=== PATIENT | male | born 1950 | race Caucasian/White ===

== ENCOUNTER → 2017-04-28 | Outpatient (CLI) | payer MEDICARE, OTHER ==
--- NOTE | 2017-04-29 16:27 | MRI ---
EXAM DESCRIPTION: Ankle,Left: MRI. CLINICAL HISTORY: ANKLE PAIN. Left ankle fracture laterally 20 years ago. COMPARISON: Left ankle radiographs 05/25/2014. TECHNIQUE: Multiplanar, high-field MRI, multiple sequences, without contrast: Left ankle. FINDINGS: LEFT ankle mortise mostly congruent; minimal narrowing on the medial gutter. Minimal effusion in the anterior and anterior. Osteochondral lesion on the inner facet the medial condyle abutting the gutter. This is abutting the insertion of the posterior tibiotalar ligament. Minimal narrowing of the inferior lateral gutter with spur formation or deformity of the tip of the lateral malleolus but no marrow edema. Anterior talofibular ligament is attenuated. The remaining lateral stabilizing ligaments are intact. Subcutaneous edema laterally abutting the extensor and flexor retinacula. Also medially abutting the medial flexor retinacula and the medial malleolus. Minimal soft tissue edema anterior to the Achilles tendon. Normal signal in the Achilles tendon flexor tendons. No fluid or soft tissue mass in the tarsal tunnel. Intermediate signal in the distal peroneal brevis tendon at the insertion. Intermediate signal in the peroneal longus tendon as it courses underneath the cuneiform. Intermediate signal in the distal tibialis anterior tendon at the insertion on the navicular. Extensor tendons are normal where seen. Subtalar joints are unremarkable. No osteochondral lesions in the intertarsal joints. No significant joint effusions. Normal signal in the proximal plantar fascia. Normal signal in the origin from the calcaneus and the posterior insertion of the Achilles. Sinus tarsi is unremarkable. IMPRESSION: 1. Small osteochondral lesion on the medial facet of the medial malleolus abutting the medial gutter of the ankle mortise. Minimal narrowing of the medial gutter and effusion. 2. Minimal narrowing of the inferior lateral gutter of the mortise with spur or deformity of the tip of the lateral malleolus. 3. Degenerative signal in the distal posterior tibial tendon at the insertion, distal peroneus brevis tendon at the insertion, and the peroneus longus tendon inferior to the medial and middle cuneiforms. 4. Subcutaneous edema more medial than lateral. Also anterior to the Achilles tendon which has normal signal.. Electronically signed by: Eduardo Gunn MD 04/29/2017 4:26 PM [facility]
== END | disposition home or self-care (01) ==
LOC: MRI 10:52
PROVIDERS: ATTEND Nurse Practitioner
DX: M25.472 Effusion, left ankle (principal)

== ENCOUNTER → 2019-03-29 | Outpatient (CLI) | payer MEDICARE, OTHER ==
--- NOTE | 2019-03-29 15:40 | CT ---
Procedure: CT ABDOMEN PELVIS WITHOUT THEN WITH IV CONTRAST Exam Date: 03/29/2019 Ordering Provider: WHITNEY GAMING Clinical Indication: ABDOMIN PAIN Comparison: 12/05/2018 abdominal ultrasound TECHNIQUE: 5 mm images were taken through the abdomen and pelvis before and after the administration of nonionic intravenous contrast material. Oral contrast was not administered. Coronal and sagittal reformatted images were generated. This exam was performed according to our departmental dose optimization program which includes use of automated exposure control, adjustment of the mA and/or kV according to patient size and/or use of iterative reconstruction technique. FINDINGS: Lower chest: Bibasilar scarring. Abdomen: Liver and biliary system: Liver is unremarkable. Cholelithiasis without CT evidence of acute cholecystitis. Spleen: Unremarkable Pancreas: Unremarkable Adrenal glands: Unremarkable Kidneys, ureters, bladder: No hydronephrosis in either kidney. Ureters and bladder are unremarkable. Lymph nodes: No lymphadenopathy by CT size criteria. Retroperitoneum, abdominal wall, peritoneal cavity: No ascites. No free air. Low density in the left iliopsoas region, question iliopsoas bursitis. Vessels: No abdominal aortic aneurysm. Aortic calcification. Bowel: Colonic diverticulosis without evidence of diverticulitis. No evidence of acute appendicitis. No bowel obstruction. Air-fluid levels within the small bowel, question enteritis. Pelvic organs: Prior prostatectomy. Bones: Multilevel spondylosis with vacuum disc phenomenon and endplate degenerative change. IMPRESSION: 1. Cholelithiasis without CT evidence of acute cholecystitis 2. Low density in the left iliopsoas region, question iliopsoas bursitis. 3. Colonic diverticulosis without evidence of diverticulitis. 4. Air-fluid levels within the nondilated small bowel, question enteritis Electronically signed by: Brady Xie MD 03/29/2019 3:39 PM [facility]
== END ==
LOC: CT 12:56
PROVIDERS: ATTEND General Practice
DX: K80.20 Calculus of gallbladder without cholecystitis without obstruction (principal); K57.30 Diverticulosis of large intestine without perforation or abscess without bleeding; R93.5 Abnormal findings on diagnostic imaging of other abdominal regions, including retroperitoneum

== ENCOUNTER → 2019-10-05 | Outpatient (CLI) | payer MEDICARE, OTHER ==
--- NOTE | 2019-10-06 11:25 | US ---
EXAM DESCRIPTION: Soft Tissue,Extremity: ULTRASOUND. CLINICAL HISTORY: 69 years Male LOCALIZED SWELLING MASS AND LUMP LEFT UPPER LIMB COMPARISON: None Available. TECHNIQUE: Transcutaneous scanning: Shi-scale and Doppler modes. FINDINGS: Homogeneous solid mass in the fascia between the adipose tissue layer and the muscle at site of palpable mass posterior right shoulder. Circumscribed well-defined margin, no posterior enhancement, wider than tall orientation. Dimensions are 2.6 x 2.4 x 0.5 cm. Not vascular. No distinct cyst, no large calcifications. 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 No complication seen. If mass enlarges or becomes painful or skin erythema develops, consider follow-up ultrasound. Electronically signed by: Eduardo Gunn MD 10/06/2019 11:23 AM CDT
== END ==
LOC: RAD 11:28
PROVIDERS: ATTEND General Practice
DX: R22.32 Localized swelling, mass and lump, left upper limb (principal)